=== PATIENT | female | born 1945 | race Two or more races ===

== ENCOUNTER 2017-08-22 09:43 | Outpatient (CLI) | payer OTHER ==
[~2017-08-22 09:43] MED LIST: ATENOLOL50 MG
== END 2017-08-22 09:56 | disposition home or self-care (01) ==
LOC: MAMO-SONO 09:43
DX: Z12.31 Encounter for screening mammogram for malignant neoplasm of breast (principal); Z87.898 Personal history of other specified conditions; N60.81 Other benign mammary dysplasias of right breast; N60.82 Other benign mammary dysplasias of left breast

== ENCOUNTER 2017-09-05 09:37 | Outpatient (CLI) | payer OTHER | END 2017-09-05 09:38 | disposition home or self-care (01) | LOC: RAD 09:37 | DX: M54.2 Cervicalgia (principal) ==

== ENCOUNTER → 2017-09-11 | Outpatient (CLI) | payer OTHER | END | disposition home or self-care (01) | LOC: NUCLEAR 10:00 | DX: M85.9 Disorder of bone density and structure, unspecified (principal); M81.0 Age-related osteoporosis without current pathological fracture ==

== ENCOUNTER 2018-01-02 09:41 | Outpatient (CLI) | payer OTHER | END 2018-01-02 09:52 | disposition home or self-care (01) | LOC: MRI 09:41 | DX: M54.12 Radiculopathy, cervical region (principal); M62.830 Muscle spasm of back | CPT/HCPCS: 72141 ==

== ENCOUNTER 2019-03-17 08:20 | Emergency (ER) | payer OTHER ==
[~2019-03-17] VITALS: Ht 170.2 cm; Wt 81.6 kg
== END 2019-03-17 15:57 | disposition home or self-care (01) ==
LOC: ER 08:20
DX: F41.8 Other specified anxiety disorders (principal)

== ENCOUNTER 2019-09-18 13:41 | Outpatient (CLI) | payer OTHER | END 2019-09-18 13:59 | disposition home or self-care (01) | LOC: MAMO-SONO 13:41 | DX: N64.59 Other signs and symptoms in breast (principal); Z12.31 Encounter for screening mammogram for malignant neoplasm of breast ==

== ENCOUNTER 2020-06-08 09:58 | Outpatient (CLI) | payer OTHER | END 2020-06-08 10:02 | disposition home or self-care (01) | LOC: RAD 09:58 | DX: M25.511 Pain in right shoulder (principal) ==

== ENCOUNTER 2020-07-02 14:01 | Outpatient (CLI) | payer OTHER | END 2020-07-02 14:09 | disposition home or self-care (01) | LOC: NUCLEAR 14:01 | DX: M85.9 Disorder of bone density and structure, unspecified (principal); M81.0 Age-related osteoporosis without current pathological fracture ==

== ENCOUNTER 2020-08-04 10:30 | Outpatient (CLI) | payer OTHER | END 2020-08-04 10:42 | disposition home or self-care (01) | LOC: MRI 10:30 | DX: M75.30 Calcific tendinitis of unspecified shoulder (principal) | CPT/HCPCS: 73221 ==

== ENCOUNTER 2020-09-22 10:25 | Emergency (ER) | payer OTHER ==
[~2020-09-22] VITALS: Ht 160 cm; Wt 95.3 kg
[2020-09-22] MEDS ORDERED: MOTION SICKNESS25 M1 PO (14:39)
== END 2020-09-22 16:08 | disposition home or self-care (01) ==
LOC: ER 10:25
DX: H81.13 Benign paroxysmal vertigo, bilateral (principal)

== ENCOUNTER 2022-03-28 10:13 | Outpatient (CLI) | payer OTHER ==
[~2022-03-28 10:13] MED LIST changes: +MOTION SICKNESS25 M1 PO
== END 2022-03-28 10:21 | disposition home or self-care (01) ==
LOC: MAMO-SONO 10:13
PROVIDERS: ATTEND General Practice
DX: N64.59 Other signs and symptoms in breast (principal)

== ENCOUNTER 2022-06-20 10:20 | Outpatient (CLI) | payer OTHER | END 2022-06-20 10:28 | disposition home or self-care (01) | LOC: RAD 10:20 | PROVIDERS: ATTEND General Practice | DX: M25.561 Pain in right knee (principal); M25.562 Pain in left knee ==

== ENCOUNTER 2023-01-11 10:12 | Emergency (ER) | payer OTHER ==
[~2023-01-11] VITALS: Ht 170.2 cm; Wt 65.8 kg
[2023-01-11] MEDS ORDERED: NORVASC5 MG PO (10:31)
[2023-01-11] MEDS ORDERED: LOSARTAN POTAS100 MG PO (10:32)
[2023-01-11] MEDS ORDERED: LIPITOR20 MG PO (10:32)
[2023-01-11 11:27] LABS: HEMOGLOBIN 12.4 g/dL (12.0-15.00); MEAN CELL VOLUME 92.9 fL (80.00-100.00); MEAN CORPUSCULAR HGB CONC 34.4 g/dl (32.0-36.0); PLATELET COUNT 268 K/uL (150-450); RED BLOOD COUNT 3.88 M/uL (4.00-6.00); RED CELL DISTRIBUTION WIDTH 13.1 % (11.5-14.5)
[2023-01-11 11:58] LABS: CALCIUM 9.5 mg/dL (8.5-10.1); CREATININE SERUM 0.74 mg/dL (0.55-1.02); GFR 76.3; POTASSIUM 3.95 mEq/L (3.5-5.1)
== END 2023-01-11 14:06 | disposition home or self-care (01) ==
LOC: ER 10:12
PROVIDERS: Emergency Medicine
DX: R42 Dizziness and giddiness (principal); E78.00 Pure hypercholesterolemia, unspecified; I10 Essential (primary) hypertension

== ENCOUNTER 2023-01-17 09:40 | Outpatient (CLI) | payer OTHER ==
[~2023-01-17 09:40] MED LIST changes: +LIPITOR20 MG PO; +LOSARTAN POTAS100 MG PO; +NORVASC5 MG PO
== END 2023-01-17 09:59 | disposition home or self-care (01) ==
LOC: MRI 09:40
PROVIDERS: ATTEND General Practice
DX: R55 Syncope and collapse (principal)
CPT/HCPCS: 70551

== ENCOUNTER 2023-01-19 08:23 | Outpatient (CLI) | payer OTHER | END 2023-01-19 08:24 | disposition home or self-care (01) | LOC: NUCLEAR 08:23 | PROVIDERS: ATTEND General Practice | DX: R42 Dizziness and giddiness (principal); R55 Syncope and collapse ==

== ENCOUNTER 2023-12-28 09:54 | Outpatient (CLI) | payer OTHER | END 2023-12-28 10:01 | disposition home or self-care (01) | LOC: RAD 09:54 | PROVIDERS: ATTEND General Practice | DX: M25.511 Pain in right shoulder (principal) ==

== ENCOUNTER 2024-02-28 10:07 | Emergency (ER) | payer OTHER ==
[~2024-02-28] VITALS: Ht 162.6 cm; Wt 68.0 kg
[2024-02-28] MEDS ORDERED: LOSARTAN-HCTZ1 EAC1 PO (10:14)
[2024-02-28] MEDS ORDERED: MECLIZINE HCL 25 MG TABLET PO STA (10:25)
[2024-02-28 11:27] LABS: HEMATOCRIT 34.2 % (36.0-45.00); HEMOGLOBIN 11.9 g/dL (12.0-15.00); MEAN CELL VOLUME 89.7 fL (80.00-100.00); MEAN CORPUSCULAR HEMOGLOBIN 31.2 pg (27.00-32.0); MEAN CORPUSCULAR HGB CONC 34.8 g/dl (32.0-36.0); PLATELET COUNT 263 K/uL (150-450); RED BLOOD COUNT 3.81 M/uL (4.00-6.00); RED CELL DISTRIBUTION WIDTH 13.2 % (11.5-14.5)
[2024-02-28 11:47] LABS: ALBUMIN 3.8 gm/dL (3.4-5.0); BILIRUBIN TOTAL 0.53 mg/dL (0.3-1.2); CALCIUM 9.8 mg/dL (8.5-10.1); CREATININE SERUM 0.59 mg/dL (0.55-1.02); GFR 98.83; GLOBULINA 3.8 G/DL (2.4-3.5); POTASSIUM 3.44 mEq/L (3.5-5.1); TOTAL PROTEIN 7.6 gm/dL (6.4-8.2)
[2024-02-28] MEDS ORDERED: 0.9 % SODIUM CHLORIDE 1,000 ML IV SCH ×2 (12:00→18:15)
[2024-02-28 15:45] LABS: URINE APPEARANCE Clear; URINE BILIRRUBIN Negative (NEGATIVE); URINE BLOOD Negative; URINE COLOR Yellow; URINE GLUCOSE Negative (NEGATIVE); URINE KETONE 15 (NEGATIVE); URINE LEUKOCYTE Small; URINE NITRATE Negative; URINE PROTEIN Negative (NEGATIVE)
[2024-02-28 15:48] LABS: URINE EPITHELIAL CELLS 94.3 uL (0.0-38.8); URINE WBC 59.6 uL (0.0-23.2)
[2024-02-28 17:04] LABS: URINE BACTERIA > 9821.5 uL (0.0-1933); URINE RBC 0.7 uL (0.0-20.8)
[2024-02-28] MEDS ORDERED: ACETAMINOPHEN 500 MG GEL..CAP PO PRN (18:15)
[2024-02-29] MEDS ORDERED: METOPROLOL SUCCINATE 25 MG TAB.SR.24H PO SCH (09:00)
[2024-02-29] MEDS ORDERED: LOSARTAN POTASSIUM 100 MG TABLET PO SCH (09:00)
[2024-02-29] MEDS ORDERED: ENOXAPARIN SODIUM 40 MG/0.4 ML SYRINGE SUBCUTANEO SCH (09:00)
[2024-02-29] MEDS ORDERED: AMLODIPINE BESYLATE 5 MG TABLET PO SCH (09:00)
[2024-02-29] MEDS ORDERED: FAMOTIDINE/PF 20 MG in 0.9 % SODIUM CHLORIDE 8 ML IV PUSH SCH (09:00)
[2024-02-29] MEDS ORDERED: IRON FUM,PS/FOLIC/BCOMP,C NO.9 1 CAP CAPSULE PO SCH (09:00)
== END 2024-02-28 21:42 | disposition left against medical advice (07) ==
LOC: ER 10:07
PROVIDERS: Emergency Medicine
DX: E87.1 Hypo-osmolality and hyponatremia (principal); R42 Dizziness and giddiness; I10 Essential (primary) hypertension
CPT/HCPCS: 36415; 70450; 93005; 96365; 96366; 99284; J7030

== ENCOUNTER 2024-03-19 09:54 | Outpatient (CLI) | payer OTHER ==
[~2024-03-19 09:54] MED LIST changes: +LOSARTAN-HCTZ1 EAC1 PO
== END 2024-03-19 10:07 | disposition home or self-care (01) ==
LOC: TOM 09:54
PROVIDERS: ATTEND Orthopaedic Surgery
DX: M19.011 Primary osteoarthritis, right shoulder (principal)